=== PATIENT | female | born 1930 | race Caucasian/White ===

== ENCOUNTER 2016-09-07 23:18 | Inpatient (IN) | payer MEDICARE, OTHER ==
--- NOTE | ~2016-09-07 | DS ---
Discharge Summary [facility] [address] [place]. [address] NAME: BACILIO GUAJARDO : 28 STATUS : DIS IN PAT#: [id number] AGE: 86 ADM/REG DATE : 09/08/16 MR#: [id number] REPORT SERV DATE: 10/06/16 DICTATED BY: GLOIRA RIVAS DATE: 10/05/16 REPORT STATUS : Draft TRANSCRIBED BY: MODL DATE: 10/05/16 ADMISSION DATE: 09/08/2016 DISCHARGE DATE: 09/11/2016 DISCHARGE DIAGNOSES: 1. Acute kidney injury. 2. Critical aortic stenosis. 3. Bilateral severe hydronephrosis. 4. New diagnosis of cirrhosis. 5. Lactic acidosis. 6. Severe senile dementia with metabolic encephalopathy. 7. 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 HISTORY: This 86-year-old has severe dementia, hypertension, hypothyroidism who was brought from her living facility known as the [facility] because of altered mental status. In the emergency room, she was found to have a BUN 87, creatinine 2.9. CT abdomen and pelvis was very abnormal revealing cirrhotic pattern of the liver, moderate amount of ascites, several indeterminate liver lesions, diffusely thickened gallbladder, dilated bilateral renal collecting system right greater than left, diffuse osteoblastic bone changes through the lower thoracic and lumbar spine, multiple bilateral ribs, bony pelvis, proximal femurs. Because of this, she was referred to our team for inpatient care. Our admitting partner ordered urine electrolytes, renal ultrasound, gave her some IV fluids, placed her empirically on some antibiotics, ordered diagnostic and therapeutic paracentesis. The renal ultrasound showed hydronephrosis bilaterally with medical renal type changes in both kidneys, ultrasound-guided paracentesis removed 1.316 L of ascites fluid. Paracentesis fluid did not have any malignancy characteristics. There is 214 white cells, total protein was 3.6, albumin was 1.9. Procalcitonin was elevated at 1.22. Given the patient's age, the newly found cirrhosis, along with critical aortic stenosis, advanced dementia, bilateral hydronephrosis, the evidence for widely spread osteoblastic metastases, it was felt there was not much that we could do reasonably. Her gibbons of assistant city attorney had already made her a DNR. Palliative Care was consulted. and her power of assistant city attorney, Mr. Andre Duran, wanted the patient to return to the [facility] for terminal care. DICTATED BY: Gloria Rivas M.D. RSRuma/GOOD Gloria Rivas M.D. / [id number] Discharge Summary [address] [place] [address] NAME: BACILIO GUAJARDO : 28 STATUS : DIS IN PAT#: [id number] AGE: 86 ADM/REG DATE : 09/08/16 MR#: [id number] REPORT SERV DATE: 10/06/16 DICTATED BY: GLORIA RIVAS DATE: 10/05/16 REPORT STATUS : Draft TRANSCRIBED BY: ZORANL DATE: 10/05/16 CC: Gloria Rivas M.D.
--- NOTE | ~2016-09-07 | HP ---
History And Physical [facility] [address] [place]. [address] NAME: BACILIO GUAJARDO : 28 STATUS : ADM IN [facility]#: [id number] AGE: 86 ADM/REG DATE : 09/08/16 MR#: [id number] REPORT SERV DATE: 09/08/16 DICTATED BY: DIGNA FAGAN DATE: 09/08/16 REPORT STATUS : Draft TRANSCRIBED BY: MODL DATE: 09/08/16 DATE OF ADMISSION: 09/08/2016 POINT OF ENTRY: [facility] Emergency Department. CHIEF COMPLAINT: Altered mental status, abnormal labs. HISTORY OF PRESENT ILLNESS: Ms. Guajardo is an 86-year-old female with history of severe Alzheimer's dementia, hypertension, hypothyroidism, history of prior cerebrovascular accident as well as COPD, who was brought from her living facility for reports of altered mental status, anorexia, and abnormal labs. History is obtained from the nurse at [facility]. She states that the patient was recently sent to [facility] for a low hemoglobin and hematocrit levels, received a blood transfusion. The patient also was reportedly diagnosed with multifocal pneumonia via chest x-ray performed at the facility and placed on oral antibiotics, I think it is Omnicef. Transfer records indicate the patient's BUN and creatinine on the 18th of this month were 50/1.8. According to the nurse at the [facility], the patient was complaining of abdominal pain. She was noted to be confused, somewhat sedated and lethargic, not eating much. Repeat labs showed critical BUN in the 80s; therefore, she was transferred to [facility] for further evaluation. Initial evaluation in the emergency department notable for BUN of 87, creatinine 2.90. CT scan of the brain was negative. CT scan of the abdomen and pelvis shows cirrhosis with some bilateral pleural effusions as well as extensive ascites. Chest x-ray per my review showed no pneumonia. She was started on a liter of LR and admitted to the Hospitalist Service. The patient currently is able to tell me her name, the fact that she is at a hospital, she knows her date and tells me she is having some abdominal pain, but otherwise is unable to provide any history or review of systems. Comprehensive review of systems otherwise negative unless listed in history of present illness. PREVIOUS MEDICAL HISTORY: 1. Severe Alzheimer's dementia. 2. Hypertension. 3. Hypothyroidism. 4. History of prior cerebrovascular accident. 5. COPD. 6. Recent diagnosis of pneumonia. 7. Recent diagnosis of UTI. 8. Anemia. SURGICAL HISTORY: Unknown at this time. ALLERGIES: NO KNOWN DRUG ALLERGIES. History And Physical [address] [place]. [address] NAME: BACILIO GUAJARDO : 28 STATUS : ADM IN [facility]#: [id number] AGE: 86 ADM/REG DATE : 09/08/16 MR#: [id number] REPORT SERV DATE: 09/08/16 DICTATED BY: DIGNA FAGAN DATE: 09/08/16 REPORT STATUS : Draft TRANSCRIBED BY: MODColeman DATE: 09/08/16 HOME MEDICATIONS: Pending at the time of dictation. SOCIAL HISTORY: Denies any tobacco, alcohol, or illicits. She is a long-term resident of [facility]. FAMILY MEDICAL HISTORY: Unable to be obtained secondary to the patient's altered mental status. LABORATORY DATA AND IMAGIN. White count is 9.2, hemoglobin is 10.5, hematocrit is 31.9, platelet count is 141, INR 1.4. 2. Sodium is 141, potassium 5.0, chloride 108, carbon dioxide 21, BUN 87, creatinine 2.89, glucose is 184, calcium is 8.5, protein is 7.4, albumin is 2.6, bilirubin is 1.0, ALT is 19, AST 81, alkaline phosphatase is 78. 3. BNP is 392. 4. EKG per my review shows atrial fibrillation with heart rates in the low 100s, otherwise no evidence of any acute ischemic infarction. 5. CT scan of the brain shows no acute intracranial abnormality. 6. CT scan of the abdomen and pelvis shows cirrhosis with extensive abdominal ascites as well as bilateral pleural effusions and diverticulosis without evidence of diverticulitis. 7. Chest x-ray per my review shows no evidence of any focal consolidation or infiltrate. 8. Urinalysis: Specific gravity is 1.019, turbid-appearing trace ketones, 2 white blood cells per high-power field with no evidence of any infection with negative leukocyte esterase, negative nitrite. PHYSICAL EXAMINATION: VITAL SIGNS: Temperature is 97.8 degrees Fahrenheit, pulse is 101, respirations 18, saturating 98% on 3 L of nasal cannula, blood pressure 141/79. On recheck, blood pressure is now 99/47 with pulse of 85. GENERAL: The patient is awake and alert. She is a chronically ill-appearing, elderly female, in no acute distress. HEENT: Atraumatic and normocephalic. Dry mucous membranes. Pupils are equal, round, reactive to light and accommodation. Extraocular eye movements intact. No scleral icterus. NECK: No jugular venous distention. No carotid bruits. CARDIAC: Regular rate and rhythm. No murmurs, rubs, or gallops. LUNGS: Decreased breath sounds at bases but otherwise, no wheezes, rhonchi, or crackles. ABDOMEN: Soft. Diffusely tender to palpation in all quadrants. Does have positive ascitic fluid wave. No rebound, guarding, or rigidity. EXTREMITIES: Warm and well perfused. No cyanosis or clubbing. Does have some trace lower extremity edema. SKIN: Warm and dry. PSYCH: Appropriate. NEURO: Alert and oriented to person only, but can tell me her birthday as well as the fact that she is at the hospital, but cannot tell me why she is here. Cranial nerves II through XII grossly intact. Speech is normal. Gait not assessed. History And Physical [address] [place]. [address] NAME: BACILIO GUAJARDO : 28 STATUS : ADM IN [facility]#: [id number] AGE: 86 ADM/REG DATE : 09/08/16 MR#: [id number] REPORT SERV DATE: 09/08/16 DICTATED BY: DIGNA FAGAN DATE: 09/08/16 REPORT STATUS : Draft TRANSCRIBED BY: MODColeman DATE: 09/08/16 ASSESSMENT: Ms. Guajardo is an 86-year-old female, transferred from [facility] for abnormal labs of rising BUN and creatinine as well as concerns for altered mental status as well as abdominal pain. PROBLEM LIST: 1. Acute kidney injury. 2. Encephalopathy. 3. Hepatic cirrhosis with ascites. 4. Recent diagnosis of pneumonia. 5. Anemia. 6. Severe Alzheimer's dementia. PLAN: 1. Acute kidney injury. Based on the patient's exam, I suspect that her acute kidney injury is due to dehydration and hypovolemia from poor oral intake recently. Alternative etiologies could also be hepatorenal syndrome given known history of cirrhosis and ascites. We will hold nephrotoxic medications. Check urine lytes, renal ultrasound as well as provide IV fluid hydration. Should the patient's creatinine not improve, may need to empirically treat for hepatorenal syndrome. 2. Encephalopathy, difficult to assess given the patient's underlying dementia, but likely secondary to worsening uremia as well as underlying hepatic disease. Check thyroid function studies, ammonia level, vitamin B12 levels as well as urine drug screen. 3. Recent pneumonia. Chest x-ray is clear here, but given report of recent diagnosis of pneumonia this week, we will place the patient empirically on some antibiotics. 4. Hepatic cirrhosis with ascites. Given the patient's reported complaints of abdominal pain as well as encephalopathy, we will order a diagnostic and therapeutic paracentesis. 5. DVT prophylaxis. Heparin subcutaneously. 6. Code status. The patient wishes to be DNR/DNI. This was obtained from transfer record DNR form and confirmed with nurse from [facility]. JCB/MODL Digna Fagan MD / [id number] CC: Jose Brandt M.D.
[2016-09-07 23:41] LABS: BASOPHILS 0.1 %; BASOPHILS ABSOLUTE 0.01 10/3/uL (0.0-0.16); EOSINOPHILS 0 %; ER CBC TAT 0 Hrs 08 Mins; HEMOGLOBIN 10.5 g/dL (12.0-16.0); IMMATURE GRANULOCYTES 0.3 %; IMMATURE GRANULOCYTES ABSOLUTE 0.03 10/3/uL (0.0-0.11); LYMPHOCYTES 18.7 %; LYMPHOCYTES ABSOLUTE 1.72 10/3/uL (0.67-4.30); MEAN CORPUS HGB CONC 32.9 g/dL (32.0-36.0); MEAN CORPUSCULAR VOLUME 94.1 fL (80-100); MEAN PLATELET VOLUME 11.2 fL (9.2-13.0); MONOCYTES 9.5 %; MONOCYTES ABSOLUTE 0.87 10/3/uL (0.21-1.20); NEUTROPHILS 71.4 %; NEUTROPHILS ABSOLUTE 6.57 10/3/uL (2.02-8.40); NUCLEATED RED BLOOD CELLS 4.6 /100WBC (0-0); RED CELL COUNT 3.39 10/6/uL (4.0-5.6); WHITE BLOOD CELLS 9.2 10/3/uL (4.5-10.5)
[2016-09-07 23:42] LABS: HEMATOCRIT 31.9 % (36.0-48.0); MANUAL DIFF NO %; PLATELET COUNT 141 10/3/uL (150-400); RBC DISTRIBUTION WIDTH 19.5 % (12.0-16.0)
[2016-09-08 00:02] LABS: CALCIUM, SERUM 8.5 MG/DL (8.5-10.4); CHLORIDE, SERUM 108 MMOL/L (96-112); SGPT(ALT) 19 U/L (5-65); SODIUM, SERUM 141 MMOL/L (135-148); TOTAL PROTEIN 7.4 G/DL (6.0-8.5)
[2016-09-08 00:03] LABS: A/G RATIO 0.5 (0.7-1.9); ALBUMIN 2.6 G/DL (3.5-5.0); ALKALINE PHOSPHATASE 78 U/L (45-117); BUN (BLOOD UREA NITROGEN) 87 MG/DL (6-23); CO2 (CARBON DIOXIDE) 21 MMOL/L (24-34); CREATININE 2.89 MG/DL (0.55-1.02); GFR AFRICAN AMERICAN 16 ML/MIN (>=60); GFR NON AFRICAN AMERICAN 14 ML/MIN (>=60); GLOBULIN 4.8 G/DL (2.5-4.1); GLUCOSE, SERUM 184 MG/DL (60-99); SGOT(AST) 81 U/L (5-40); TROPONIN I 0.07 NG/ML (<0.05)
[2016-09-08 00:59] LABS: INTERNATIONAL NORMAL RATI 1.4 UNITS (-); PARTIAL THROMBO TIME 24.2 SEC (22.5-37.2)
[2016-09-08 01:45] LABS: ASCORBIC ACID (UR NOT ORDER) NEG (NEG); BILIRUBIN, URINE NEGATIVE (NEG); ER URINALYSIS TAT 0 Hrs 00 Mins; KETONE, URINE TRACE MG/DL (NEG); LEUKOCYTE ESTERASE(NOT OR NEG (NEG); NITRITE (URINE) NEG (NEG); WBC (NOT ORDERED) (RFLEX) 2 (0-5)
[2016-09-08] MEDS ORDERED: OMNICEF300 PO (04:05)
[2016-09-08] MEDS ORDERED: PROTONIX PO (04:05)
[2016-09-08] MEDS ORDERED: SYSTANE ULTR OPH (04:06)
[2016-09-08] MEDS ORDERED: REFRESH OPH SO0.3 ML OPH (04:07)
[2016-09-08] MEDS ORDERED: NAMZARIC 28 MG1 EACH PO (04:07)
[2016-09-08] MEDS ORDERED: SYN125 PO (04:07)
[2016-09-08] MEDS ORDERED: VITAMIN D31000 UNIT PO (04:08)
[2016-09-08] MEDS ORDERED: PLAVIX PO (04:08)
[2016-09-08] MEDS ORDERED: FOSAMAX70 MG PO (04:08)
[2016-09-08] MEDS ORDERED: LIPITOR10 PO (04:09)
[2016-09-08] MEDS ORDERED: DSS PO (04:09)
[2016-09-08] MEDS ORDERED: ASAB PO (04:09)
[2016-09-08] MEDS ORDERED: TUMSROLL PO (04:09)
[2016-09-08] MEDS ORDERED: REM15 PO (04:10)
[2016-09-08] MEDS ORDERED: FOLIC PO (04:10)
[2016-09-08] MEDS ORDERED: ZOFRAN ODT4 MG PO (04:10)
[2016-09-08] MEDS ORDERED: X25 PO (04:11)
[2016-09-08] MEDS ORDERED: BISR PR (04:12)
[2016-09-08] MEDS ORDERED: ALBUTEROL0.63 MG/3 INH (04:12)
[2016-09-08] MEDS ORDERED: MOMUD PO (04:13)
[2016-09-08 09:10] LABS: MEAN CORPUS HGB CONC 32.4 g/dL (32.0-36.0); MEAN CORPUSCULAR HEMOGLOB 30.8 pg (26.0-34.0); MEAN CORPUSCULAR VOLUME 95.1 fL (80-100); MEAN PLATELET VOLUME 10.1 fL (9.2-13.0); NUCLEATED RED BLOOD CELLS 7.3 /100WBC (0-0); RBC DISTRIBUTION WIDTH 19.5 % (12.0-16.0); WHITE BLOOD CELLS 5.8 10/3/uL (4.5-10.5)
[2016-09-08 09:11] LABS: HEMOGLOBIN 8.1 g/dL (12.0-16.0); MANUAL DIFF YES %; PLATELET COUNT 81 10/3/uL (150-400); RED CELL COUNT 2.63 10/6/uL (4.0-5.6)
[2016-09-08 09:28] LABS: ALPHA FETOPROTEIN (TUMOR) 2.1 NG/ML (< 8.0); CA-19-9 15.2 U/ML (< 37.0); CALCIUM, SERUM 7.8 MG/DL (8.5-10.4); CHLORIDE, SERUM 111 MMOL/L (96-112); CO2 (CARBON DIOXIDE) 18 MMOL/L (24-34); CREATININE 2.76 MG/DL (0.55-1.02); GFR AFRICAN AMERICAN 17 ML/MIN (>=60); GFR NON AFRICAN AMERICAN 15 ML/MIN (>=60); GLUCOSE, SERUM 149 MG/DL (60-99); POTASSIUM, SERUM 4.6 MMOL/L (3.5-5.3); SGOT(AST) 60 U/L (5-40); SGPT(ALT) 15 U/L (5-65); SODIUM, SERUM 142 MMOL/L (135-148); TOTAL BILIRUBIN 0.6 MG/DL (0-1.2); TOTAL PROTEIN 7.1 G/DL (6.0-8.5)
[2016-09-08 09:29] LABS: A/G RATIO 1.1 (0.7-1.9); ALBUMIN 3.7 G/DL (3.5-5.0); ALKALINE PHOSPHATASE 56 U/L (45-117); BUN (BLOOD UREA NITROGEN) 81 MG/DL (6-23); CEA 30.3 NG/ML; GLOBULIN 3.4 G/DL (2.5-4.1)
[2016-09-08 09:40] LABS: BAND NEUTROPHILS 20 %; IMMATURE GRANS ABSOLUTE (CALC) 0.06 10/3/uL (0.0-0.11); LYMPHOCYTES 23 %; LYMPHOCYTES ABSOLUTE (CALC) 1.33 10/3/uL (0.67-4.30); METAMYELOCYTES 1 %; MONOCYTES 7 %; MONOCYTES ABSOLUTE (CALC) 0.41 10/3/uL (0.21-1.20); SEGMENTED NEUTROPHIL (0) 49 %; TOTAL NUCLEATED CELLS 100
[2016-09-08 09:41] LABS: ANISOCYTOSIS 1+ (5-10/OIF) (0-5/OIF); HELMET CELLS OCC (0-2/OIF); MACROCYTES 1+ (5-10/OIF) (0-5/OIF); PLATELET ESTIMATE DEC (ADEQUATE); POLYCHROMASIA 1+ (2-5/OIF) (0-1/OIF); TOXIC GRANULATION SLT
[2016-09-08 09:42] LABS: HOWELL JOLLY BODIES OCC (0-1); MICROCYTES 1+ (5-10/OIF) (0-5/OIF); TEARDROP SHAPED RBCS OCC (0-2/OIF)
[2016-09-08 09:43] LABS: SCHISTOCYTES OCC (0-2/OIF)
[2016-09-08 09:51] LABS: PROCALCITONIN 1.22 ng/mL (<0.5)
[2016-09-08 12:13] LABS: BASOPHILS 0.2 %; BASOPHILS ABSOLUTE 0.01 10/3/uL (0.0-0.16); EOSINOPHILS 0 %; HEMOGLOBIN 8.4 g/dL (12.0-16.0); IMMATURE GRANULOCYTES 0.2 %; IMMATURE GRANULOCYTES ABSOLUTE 0.01 10/3/uL (0.0-0.11); LYMPHOCYTES 24.3 %; LYMPHOCYTES ABSOLUTE 1.33 10/3/uL (0.67-4.30); MEAN CORPUS HGB CONC 31.1 g/dL (32.0-36.0); MEAN CORPUSCULAR HEMOGLOB 30.5 pg (26.0-34.0); MEAN PLATELET VOLUME 10.5 fL (9.2-13.0); MONOCYTES 9.3 %; MONOCYTES ABSOLUTE 0.51 10/3/uL (0.21-1.20); NEUTROPHILS ABSOLUTE 3.61 10/3/uL (2.02-8.40); PLATELET COUNT 83 10/3/uL (150-400); RBC DISTRIBUTION WIDTH 19.5 % (12.0-16.0); RED CELL COUNT 2.75 10/6/uL (4.0-5.6); WHITE BLOOD CELLS 5.5 10/3/uL (4.5-10.5)
[2016-09-08 12:14] LABS: MANUAL DIFF NO %; MEAN CORPUSCULAR VOLUME 98.2 fL (80-100)
[2016-09-08 12:30] LABS: ANISOCYTOSIS 1+ (5-10/OIF) (0-5/OIF); PLATELET ESTIMATE DEC (ADEQUATE); POLYCHROMASIA 1+ (2-5/OIF) (0-1/OIF)
[2016-09-08 12:31] LABS: HELMET CELLS OCC (0-2/OIF); MACROCYTES 1+ (5-10/OIF) (0-5/OIF); MICROCYTES 1+ (5-10/OIF) (0-5/OIF); SCHISTOCYTES OCC (0-2/OIF); TEARDROP SHAPED RBCS OCC (0-2/OIF)
[2016-09-08 12:32] LABS: TARGET CELLS OCC (1-2/OIF) (0-1/OIF)
[2016-09-08 15:46] LABS: ALBUMIN 3.5 G/DL (3.5-5.0); BUN (BLOOD UREA NITROGEN) 80 MG/DL (6-23); CALCIUM, SERUM 7.8 MG/DL (8.5-10.4); CHLORIDE, SERUM 113 MMOL/L (96-112); CO2 (CARBON DIOXIDE) 18 MMOL/L (24-34); CREATININE 2.69 MG/DL (0.55-1.02); FERRITIN 784 NG/ML (8-252); FOLATE 60.2 NG/ML (>5.2); FREE T4 1.04 NG/DL (0.76-1.46); GFR AFRICAN AMERICAN 18 ML/MIN (>=60); GFR NON AFRICAN AMERICAN 15 ML/MIN (>=60); GLUCOSE, SERUM 127 MG/DL (60-99); IRON BINDING CAPACITY 249 MCG/DL (225-410); IRON, SERUM 32 MCG/DL (35-150); PHOSPHORUS, SERUM 5.9 MG/DL (2.5-4.5); POTASSIUM, SERUM 4.7 MMOL/L (3.5-5.3); SODIUM, SERUM 144 MMOL/L (135-148)
[2016-09-08 17:22] LABS: B NATRIURETIC PEPTIDE (BNP) 503.7 PG/ML (< 100.0)
[2016-09-09 09:01] LABS: ALKALINE PHOSPHATASE 56 U/L (45-117); CHLORIDE, SERUM 112 MMOL/L (96-112); CREATININE 2.85 MG/DL (0.55-1.02); GFR AFRICAN AMERICAN 17 ML/MIN (>=60); GFR NON AFRICAN AMERICAN 14 ML/MIN (>=60); GLUCOSE, SERUM 117 MG/DL (60-99); POTASSIUM, SERUM 4.6 MMOL/L (3.5-5.3); SGOT(AST) 58 U/L (5-40); SGPT(ALT) 16 U/L (5-65); SODIUM, SERUM 144 MMOL/L (135-148); TOTAL BILIRUBIN 0.9 MG/DL (0-1.2); TOTAL PROTEIN 7.2 G/DL (6.0-8.5)
[2016-09-09 09:03] LABS: BUN (BLOOD UREA NITROGEN) 87 MG/DL (6-23); CO2 (CARBON DIOXIDE) 15 MMOL/L (24-34); HEMATOCRIT 26.2 % (36.0-48.0); HEMOGLOBIN 8.1 g/dL (12.0-16.0); MEAN CORPUS HGB CONC 30.9 g/dL (32.0-36.0); MEAN CORPUSCULAR HEMOGLOB 29.9 pg (26.0-34.0); MEAN CORPUSCULAR VOLUME 96.7 fL (80-100); MEAN PLATELET VOLUME 10.8 fL (9.2-13.0); NUCLEATED RED BLOOD CELLS 10.5 /100WBC (0-0); PLATELET COUNT 67 10/3/uL (150-400); RBC DISTRIBUTION WIDTH 19.6 % (12.0-16.0); RED CELL COUNT 2.71 10/6/uL (4.0-5.6); WHITE BLOOD CELLS 5.7 10/3/uL (4.5-10.5)
[2016-09-09 09:04] LABS: A/G RATIO 1.8 (0.7-1.9); ALBUMIN 4.6 G/DL (3.5-5.0); GLOBULIN 2.6 G/DL (2.5-4.1)
[2016-09-09 09:09] LABS: MANUAL DIFF YES %
[2016-09-09 10:02] LABS: ANISOCYTOSIS 1+ (5-10/OIF) (0-5/OIF); BAND NEUTROPHILS 24 %; LYMPHOCYTES 14 %; MONOCYTES 5 %; MONOCYTES ABSOLUTE (CALC) 0.29 10/3/uL (0.21-1.20); NEUTROPHILS ABSOLUTE (CALC) 4.62 10/3/uL (2.02-8.40); PLATELET ESTIMATE DEC (ADEQUATE); SEGMENTED NEUTROPHIL (0) 57 %; TOTAL NUCLEATED CELLS 100
[2016-09-09 17:24] LABS: BF TOTAL CELL CT (NOT ORD 214 /MM3; BODY FLUID RBC (NOT ORD) 210 /MM3
[2016-09-09 17:29] LABS: BF ALBUMIN 1.9 G/DL; PROTEIN BODY FLUID 3.6 G/DL
[2016-09-09 18:04] LABS: BD FL LYMPH (NOT ORD) 27 %; BD FL SOURCE (NOT ORD) PARACENTESIS; BF BASO (NOT OF) 0 %; BF LARGE MONONUCLEAR 67 %; BODY FLUID EOS (NOT ORD) 0 %; BODY FLUID SEG (NOT ORD) 6 %
== END 2016-09-11 03:43 | disposition expired | DRG 435 ==
LOC: ER 23:18 → 4SO 09-08 02:55
PROVIDERS: Emergency Medicine; Internal Medicine
PROC: 0W9G3ZZ Drainage of Peritoneal Cavity, Percutaneous Approach (ICD-10-PCS; principal; 2016-09-09)
DX: C22.9 Malignant neoplasm of liver, not specified as primary or secondary (principal); K76.7 Hepatorenal syndrome; J69.0 Pneumonitis due to inhalation of food and vomit; N17.9 Acute kidney failure, unspecified; G93.41 Metabolic encephalopathy; C79.51 Secondary malignant neoplasm of bone; E87.2 Acidosis; R18.8 Other ascites; K74.60 Unspecified cirrhosis of liver; D64.9 Anemia, unspecified; G30.9 Alzheimer's disease, unspecified; F02.80 Dementia in other diseases classified elsewhere, unspecified severity, without behavioral disturbance, psychotic disturbance, mood disturbance, and anxiety; E86.0 Dehydration; E86.1 Hypovolemia; Z66 Do not resuscitate; Z86.73 Personal history of transient ischemic attack (TIA), and cerebral infarction without residual deficits; I48.0 Paroxysmal atrial fibrillation; E03.9 Hypothyroidism, unspecified; J44.9 Chronic obstructive pulmonary disease, unspecified; I10 Essential (primary) hypertension; I95.89 Other hypotension
CPT/HCPCS: 49083; 70450; 71010; 74176; 76775; 80053; 80069; 81001; 82042; 82105; 82140; 82378; 82607; 82728; 82746; 83540; 83550; 83605; 83880; 84145; 84157; 84439; 84443; 84484; 85025; 85610; 85730; 86301; 87040; 87070; 87205; 88112; 88305; 88313; 88341; 88342; 89051; 93005; 93306; 99285; A9270-GY; J0456; J2543; J3370; P9047